=== PATIENT | male | born 1945 | race Caucasian/White ===

== ENCOUNTER 2017-01-17 14:17 | Emergency (ER) | payer MEDICAID ==
[~2017-01-17] VITALS: Ht 170.2 cm; Wt 82.9 kg
[2017-01-17 14:46] VITALS: Ht 170.2 cm; Wt 82.9 kg
[2017-01-17] MEDS ORDERED: morphine 4 MG/ML VIAL IV STA (16:13)
[2017-01-17] MEDS ORDERED: ONDANSETRON 4 MG INJ IV STA (16:13)
[2017-01-17] MEDS ORDERED: SOD CHLORIDE 0.9% 1,000 ML IV STA (16:13)
[2017-01-17 16:49] LABS: ADD SCAN DIFF NO
[2017-01-17 16:51] LABS: BASOPHILS % 0.5 % (0.0-2.0); EOSINOPHILS # 0.2 10^3/ul (0.0-0.5); EOSINOPHILS % 3.9 % (0.0-7.0); HEMATOCRIT 46.5 % (42.0-52.0); HEMOGLOBIN 15.8 g/dl (14.0-18.0); LYMPHOCYTES # 1.8 10^3/ul (0.8-2.9); LYMPHOCYTES % 45.3 % (15.0-51.0); MEAN CORPUSCULAR HEMOGLOBIN 30.9 pg (29.0-33.0); MEAN CORPUSCULAR VOLUME 90.8 fl (82.0-101.0); MEAN PLATELET VOLUME 9.1 fl (7.4-10.4); MONOCYTE # 0.5 10^3/ul (0.3-0.9); MONOCYTES % 11.1 % (0.0-11.0); NEUTROPHIL # 1.6 10^3/ul (1.6-7.5); NEUTROPHILS % 39.2 % (39.0-77.0); PLATELET COUNT 234 10^3/UL (140-415); RED BLOOD COUNT 5.12 10^6/ul (4.70-6.10); RED CELL DISTRIBUTION WIDTH 12.9 % (11.5-14.5); WHITE BLOOD COUNT 4.1 10^3/ul (4.8-10.8)
[2017-01-17 17:02] LABS: ALBUMIN 4.3 g/dl (3.3-4.9)
[2017-01-17 17:03] LABS: POTASSIUM 4.2 mmol/L (3.5-5.1)
[2017-01-17 17:05] LABS: ALBUMIN/GLOBULIN RATIO 1.1; BILIRUBIN,INDIRECT 0.7 mg/dl (0-1.1); BILIRUBIN,TOTAL 0.7 mg/dl (0.2-1.3); CREATININE 1.15 mg/dl (0.61-1.24); TOTAL PROTEIN 8.2 g/dl (6.1-8.1)
[2017-01-17 17:06] LABS: CALCIUM 9.1 mg/dl (8.4-10.2)
[2017-01-17] MEDS ORDERED: SOD CHLORIDE 0.9% 100 ML ONE (17:59)
[2017-01-17] MEDS ORDERED: IOHEXOL 300MG/ML 150 ML BTL ONE (17:59)
[2017-01-17 18:15] VITALS: BP 150/59; PULSE 81; RESP 17
--- NOTE | 2017-01-17 18:23 | RADRPT ---
PROCEDURE: CT of the abdomen and pelvis CLINICAL INDICATION: Abdominal pain TECHNIQUE: The study was performed utilizing a [employer] 64-slice multidetector CT scanner. Dir ect spiral axial sections were obtained through the abdomen and pelvis with intravenous contrast. Af ter administration of 100cc of Omnipaque-300, postcontrast images were obtained. Coronal and sagitt al reformatted images were performed. The CTDI vol is 11.92 mGy and the DLP is 718.45 mGy-cm. The i mages were reviewed on a PACS workstation. COMPARISON: No prior studies are available for comparison. FINDINGS: CT abdomen: The lung bases are clear. The heart is not enlarged. No pericardial effusion is seen. The liver is normal in size and contour. No focal liver lesions or intrahepatic biliary dilatation is seen. The gallbladder is normal. No common bile duct dilatation is seen. A calcification is seen in the spleen. Suggestion of a 7 mm enhancing foci in the posterior aspect of the spleen is seen. The remainder of the spleen is homogeneous in attenuation and normal in size. The pancreas, and adre nal glands are unremarkable in appearance. The kidneys are normal in size and contour enhance normal ly. No evidence of hydronephrosis or nephrolithiasis is seen. The stomach is unremarkable. Sigmoid diverticulosis is seen without evidence of diverticulitis. The small and remainder of the large bowel are otherwise to unremarkable in course and caliber. No inf lammatory changes in the periappendiceal region is seen. No enlarged lymph nodes or fluid collection s are seen. The aorta is normal in caliber. CT pelvis: No pelvic mass, adenopathy, or focal fluid collection is seen. There is no free fluid. The urinary bladder is mildly thickened The prostate is enlarged and heterogeneous in attenuation. No osseous lesions are seen. A small fat containing left inguinal hernia is seen. IMPRESSION: 1. No acute pathology in the abdomen and pelvis. 2. Sigmoid diverticulosis without evidence of diverticulitis. 3. Enlarged and heterogeneous prostate with mild bladder wall thickening. Recommend PSA correlatio n. RPTAT: [facility]PN[facility] Physician Chayo Date Time Electronically viewed and signed by Physician Chayo on 01/17/2017 18:23 /
[2017-01-17] MEDS ORDERED: HYDR-906 PO (19:11)
[2017-01-17] MEDS ORDERED: DIPH1TAB PO (19:11)
[2017-01-17] MEDS ORDERED: CIPR500T4 PO (19:11)
[2017-01-17] MEDS ORDERED: METR500T PO (19:11)
--- NOTE | 2017-01-17 19:16 | ERD ---
ER Documentation Chief Complaint Date/Time DATE: 01/17/17 TIME: 19:14 Chief Complaint DIARRHEA X5 DAYS HPI This is a 71-year-old man complaining of left lower quadrant pain described as crampy and mild with some diarrhea for 5 days. He is having 3-4 bouts of diarrhea today that distance of watery but no blood. No vomiting no fever no prior history of diverticulitis. He has no chest pain shortness of breath. He does have a good appetite. ROS All systems reviewed and are negative except as per history of present illness. Medications Home Meds Active Scripts Diphenoxylate HCl/Atropine (Lomotil 2.5-0.025 mg Tablet) 1 Each Tablet, 1 TAB PO QID Y for DIARRHEA, #10 TAB Prov:JANAK WILLIAM DO 01/17/17 Hydrocodone/Acetaminophen (Beaman 5-325 Tablet) 1 Each Tablet, 1 EACH PO q 4-6 hours, #14 TAB Prov:JANAK WILLIAM. DO 01/17/17 Metronidazole* (Flagyl*) 500 Mg Tablet, 500 MG PO TID, #21 TAB Prov:LALITA WILLIAMSTOLOS A. DO 01/17/17 Ciprofloxacin Hcl* (Ciprofloxacin Hcl*) 500 Mg Tablet, 500 MG PO BID, #14 TAB Prov:JANAK WILLIAM. DO 01/17/17 PMhx/Soc History of Surgery: Yes (cardiac stent placement) Anesthesia Reaction: No Hx Neurological Disorder: No Hx Respiratory Disorders: No Hx Cardiac Disorders: Yes (htnj, high cholsterol) Hx Psychiatric Problems: No Hx Miscellaneous Medical Probl: No Hx Alcohol Use: No Hx Substance Use: No Hx Tobacco Use: No Smoking Status: Never smoker FmHx Family History: No coronary disease Physical Exam Vitals Vital Signs Date Time Temp Pulse Resp B/P Pulse Ox O2 Delivery O2 Flow Rate FiO2 01/17/17 18:15 81 17 150/59 97 Room Air 01/17/17 16:50 74 17 124/74 99 Room Air 01/17/17 14:46 97.8 77 16 160/112 96 Physical Exam Const: Well-developed, well-nourished Head: Atraumatic, normocephalic Eyes: Normal Conjunctiva, PERRLA, EOMI, normal sclera, no nystagmus ENT: Normal External Ears, Nose and Mouth, moist mucus membranes. Neck: Full range of motion. No meningismus, no lymphadenopathy. Resp: Clear to auscultation bilaterally, no wheezing, rhonchi, rales Cardio: Regular rate and rhythm, no murmurs, S1 S2 present Abd: Soft, mild left lower quadrant tenderness no guarding or rebound, non distended. Normal bowel sounds, no guarding or rebound, no pulsitile abdominal masses or bruits Skin: No petechiae or rashes, no ecchymosis , no maculopapular rash Back: No midline or flank tenderness Ext: No cyanosis, or edema, FROM x 4, normal inspection, neurovascularly intact x 4 Neur: Awake and alert, STR 5/5 x 4, sensation intact x 4, no focal findings, cerebellum intact Psych: Normal Mood and Affect Result Diagram: 01/17/17 1630 01/17/17 1630 Results 24 hrs Laboratory Tests Test 01/17/17 16:30 Alanine Aminotransferase (ALT/SGPT) 49IU/L Albumin 4.3g/dl Albumin/Globulin Ratio 1.10 Alkaline Phosphatase 82IU/L Anion Gap 18 Aspartate Amino Transf (AST/SGOT) 41IU/L Basophils # 0.010^3/ul Basophils % 0.5% Blood Urea Nitrogen 28mg/dl Calcium Level 9.1mg/dl Carbon Dioxide Level 26mmol/L Chloride Level 103mmol/L Creatinine 1.15mg/dl Direct Bilirubin 0.00mg/dl Eosinophils # 0.210^3/ul Eosinophils % 3.9% Globulin 3.90g/dl Glucose Level 89mg/dl Hematocrit 46.5% Hemoglobin 15.8g/dl Indirect Bilirubin 0.7mg/dl Lymphocytes # 1.810^3/ul Lymphocytes % 45.3% Mean Corpuscular Hemoglobin 30.9pg Mean Corpuscular Hemoglobin Concent 34.0g/dl Mean Corpuscular Volume 90.8fl Mean Platelet Volume 9.1fl Monocytes # 0.510^3/ul Monocytes % 11.1% Neutrophils # 1.610^3/ul Neutrophils % 39.2% Nucleated Red Blood Cells # 0.010^3/ul Nucleated Red Blood Cells % 0.0/100WBC Platelet Count 67560^3/UL Potassium Level 4.2mmol/L Red Blood Count 5.1210^6/ul Red Cell Distribution Width 12.9% Sodium Level 143mmol/L Total Bilirubin 0.7mg/dl Total Protein 8.2g/dl White Blood Count 4.110^3/ul Current Medications Medications (Trade) Dose Ordered Sig/Bree Route PRN Reason Start Time Stop Time Status Last Admin Dose Admin Sodium Chloride (NS) 1,000 ml @ 1,000 mls/hr Q1H STAT IV 01/17/17 16:13 01/17/17 17:12 DC 01/17/17 16:40 Morphine Sulfate (morphine) 4 mg ONCE STAT IV 01/17/17 16:13 01/17/17 16:15 DC 01/17/17 16:39 Ondansetron HCl (Zofran Inj) 4 mg ONCE STAT IV 01/17/17 16:13 01/17/17 16:15 DC 01/17/17 16:39 IV Flush 10 ml 10 ml STK-MED ONCE .ROUTE 01/17/17 17:59 01/17/17 18:00 DC 01/17/17 18:06 Sodium Chloride (NS) 100 ml @ ud STK-MED ONCE .ROUTE 01/17/17 17:59 01/17/17 18:00 DC 01/17/17 18:06 Iohexol (Omnipaque 300mg/ ml) 150 ml STK-MED ONCE .ROUTE 01/17/17 17:59 01/17/17 18:00 DC 01/17/17 18:07 Procedures/MDM PROCEDURE: CT of the abdomen and pelvis CLINICAL INDICATION: Abdominal pain TECHNIQUE: The study was performed utilizing a GE [employer] 64-slice multidetector CT scanner. Direct spiral axial sections were obtained through the abdomen and pelvis with intravenous contrast. After administration of 100cc of Omnipaque-300, postcontrast images were obtained. Coronal and sagittal reformatted images were performed. The CTDI vol is 11.92 mGy and the DLP is 718.45 mGy-cm. The images were reviewed on a PACS workstation. COMPARISON: No prior studies are available for comparison. FINDINGS: CT abdomen: The lung bases are clear. The heart is not enlarged. No pericardial effusion is seen. The liver is normal in size and contour. No focal liver lesions or intrahepatic biliary dilatation is seen. The gallbladder is normal. No common bile duct dilatation is seen. A calcification is seen in the spleen. Suggestion of a 7 mm enhancing foci in the posterior aspect of the spleen is seen. The remainder of the spleen is homogeneous in attenuation and normal in size. The pancreas, and adrenal glands are unremarkable in appearance. The kidneys are normal in size and contour enhance normally. No evidence of hydronephrosis or nephrolithiasis is seen. The stomach is unremarkable. Sigmoid diverticulosis is seen without evidence of diverticulitis. The small and remainder of the large bowel are otherwise to unremarkable in course and caliber. No inflammatory changes in the periappendiceal region is seen. No enlarged lymph nodes or fluid collections are seen. The aorta is normal in caliber. CT pelvis: No pelvic mass, adenopathy, or focal fluid collection is seen. There is no free fluid. The urinary bladder is mildly thickened The prostate is enlarged and heterogeneous in attenuation. No osseous lesions are seen. A small fat containing left inguinal hernia is seen. IMPRESSION: 1. No acute pathology in the abdomen and pelvis. 2. Sigmoid diverticulosis without evidence of diverticulitis. 3. Enlarged and heterogeneous prostate with mild bladder wall thickening. Recommend PSA correlation. RPTAT: HPNM Physician Chayo Date Time Electronically viewed and signed by Physician Chayo on 01/17/2017 18 :23 / CC: JANAK WILLIAM DO Patient may have some microscopic diverticulitis. No evidence of perforation or acute pathology. We will discharge home on Cipro Flagyl Beaman and Lomotil Departure Diagnosis: Primary Impression: Abdominal pain Abdominal location: left lower quadrant Qualified Code: R10.32 - Left lower quadrant pain Additional Impression: Diarrhea Diarrhea type: unspecified type Qualified Code: R19.7 - Diarrhea, unspecified type Condition: Stable Patient Instructions: Treating Diarrhea Referrals: DIANNE MOORE MD (PCP) JANAK WILLIAM DO Jan 17, 2017 19:16
[2017-01-17] MEDS ORDERED: CLOP75TA4 PO (19:34)
[2017-01-17] MEDS ORDERED: ATOR40TA68 PO (19:34)
[2017-01-17] MEDS ORDERED: ESOM40CA PO (19:35)
[2017-01-17] MEDS ORDERED: METO50TA16 PO (19:38)
[2017-01-17] MEDS ORDERED: ASPI-664 PO (19:38)
== END 2017-01-17 19:17 | disposition home or self-care (01) ==
LOC: E/R 14:17
DX: R10.32 Left lower quadrant pain (principal); R19.7 Diarrhea, unspecified; I10 Essential (primary) hypertension; Z98.61 Coronary angioplasty status
CPT/HCPCS: 36415; 74177; 80053; 85025; 96361; 96374; 96375; J2270; J2405; J7030; Q9967; Z7502; Z7610